=== PATIENT | male | born 1995 | race Hispanic/Latino ===

== ENCOUNTER 2019-05-09 17:39 | Emergency (ER) | payer OTHER ==
[2019-05-09] MEDS ORDERED: CEFTRIAXONE SODIUM 500 MG VIAL ONE (19:40)
[2019-05-09] MEDS ORDERED: AZITHROMYCIN 250 MG TABLET PO ONE (19:41)
[2019-05-09] MEDS ORDERED: LIDOCAINE HCL-MPF 1% 2ML VIAL ONE (19:41)
[2019-05-09 20:08] LABS: APPEARANCE,URINE CLEAR (CLEAR); BILIRUBIN,URINE N (NEGATIVE); COLOR,URINE YELLOW (YELLOW); GLUCOSE, URINE (UA) NEGATIVE (NEGATIVE); KETONES,URINE NEGATIVE (NEGATIVE); NITRATE,URINE NEGATIVE (NEGATIVE); OCCULT BLOOD,URINE NEGATIVE (NEGATIVE); PROTEIN,URINE NEGATIVE (NEGATIVE); UROBILINOGEN,URINE 0.2 mg/dL (0.2-1.0)
[2019-05-09 20:09] LABS: LEUKOCYTE ESTERASE ,URINE NEGATIVE (NEGATIVE)
== END 2019-05-09 20:02 | disposition home or self-care (01) ==
LOC: EDH 19:38
DX: R30.0 Dysuria (principal)
CPT/HCPCS: 81003; 87486; 87797; 96372; 99284; J0696; J3490

== ENCOUNTER 2019-05-25 21:12 | Emergency (ER) | payer OTHER ==
[2019-05-25 21:54] LABS: APPEARANCE,URINE Clear (CLEAR); BILIRUBIN,URINE Negative (NEGATIVE); COLOR,URINE Yellow (YELLOW); GLUCOSE, URINE (UA) Negative (NEGATIVE); KETONES,URINE Negative (NEGATIVE); LEUKOCYTE ESTERASE ,URINE Negative (NEGATIVE); NITRATE,URINE Negative (NEGATIVE); OCCULT BLOOD,URINE Negative (NEGATIVE); PH,URINE 5.5 (5.0-8.0); PROTEIN,URINE Negative (NEGATIVE)
[2019-05-25 22:02] LABS: AMPHET/METH SCREEN,URINE NEGATIVE (NEGATIVE); BARBITURATE SCREEN, URINE NEGATIVE (NEGATIVE); BENZODIAZEPINES SCREEN,URINE POSITIVE (NEGATIVE); CANNABINOID SCREEN,URINE POSITIVE (NEGATIVE); COCAINE SCREEN,URINE POSITIVE (NEGATIVE); OPIATE SCREEN,URINE NEGATIVE (NEGATIVE); PHENCYCLIDINE SCREEN,URINE NEGATIVE (NEGATIVE)
[2019-05-25 22:06] LABS: CREATININE 1.3 mg/dL (0.5-1.5); POTASSIUM 4.5 mmol/L (3.5-5.1)
[2019-05-25 22:09] LABS: BASOPHILS % (AUTO) 0.6 % (0.0-5.0); LYMPHOCYTES % (AUTO) 33.2 % (21.0-51.0); MEAN CORPUSCULAR HEMOGLOBIN 29.6 pg (27.0-33.0); MEAN CORPUSCULAR HGB CONC 33.6 g/dL (32.0-36.0); MONOCYTES % (AUTO) 10.7 % (3.0-13.0); NEUTROPHILS % (AUTO) 53.5 % (40.0-77.0); PLATELET COUNT (AUTO) 220 K/uL (130-400); RED CELL DISTRIBUTION WIDTH 13.4 % (11.0-15.5)
== END 2019-05-25 22:41 | disposition home or self-care (01) ==
LOC: EDH 21:12
DX: R51 Headache (principal); T42.4X5A Adverse effect of benzodiazepines, initial encounter; F14.10 Cocaine abuse, uncomplicated; F12.10 Cannabis abuse, uncomplicated; Y92.89 Other specified places as the place of occurrence of the external cause
CPT/HCPCS: 36415; 71045; 80048; 80305; 81003; 85025

== ENCOUNTER 2021-05-26 17:41 | Emergency (ER) | payer OTHER ==
[~2021-05-26] VITALS: Ht 170.2 cm; Wt 108.9 kg
[2021-05-26] MEDS ORDERED: DICYCLOMINE 20MG (10MG/ML) AMP IM ONE (18:30)
[2021-05-26] MEDS ORDERED: MAG/ALUM/SIMETH 30 ML UDCUP PO ONE (18:30)
[2021-05-26] MEDS ORDERED: DICY20TA2 PO (19:28)
[2021-05-26 20:00] VITALS: BP 138/82
== END 2021-05-26 20:08 | disposition home or self-care (01) ==
LOC: EDH 17:41
DX: R10.9 Unspecified abdominal pain (principal)
CPT/HCPCS: 96372